=== PATIENT | male | born 1965 | race Caucasian/White ===

== ENCOUNTER 2017-11-22 21:14 | Emergency (ER) | END 2017-11-23 03:02 | disposition left against medical advice (07) ==

== ENCOUNTER 2017-11-28 02:07 | Emergency (ER) | END 2017-11-28 02:18 | disposition left against medical advice (07) ==

== ENCOUNTER 2018-08-26 03:07 | Emergency (ER) | END 2018-08-26 03:22 | disposition left against medical advice (07) ==